=== PATIENT | female | born 1985 | race Caucasian/White ===

== ENCOUNTER 2019-07-21 10:24 | Emergency (ER) | payer OTHER ==
[~2019-07-21] VITALS: Ht 167.6 cm; Wt 71.2 kg
[2019-07-21] MEDS ORDERED: ASPIRIN 81 MG CHEW TAB PO ONE (11:00)
[2019-07-21] MEDS ORDERED: KETOROLAC TROMETHAMINE 30 MG/ML VIAL IV STA (11:06)
[2019-07-21] MEDS ORDERED: DEXAMETHASONE SOD PHOS 10 MG/1 ML VIAL IV ONE (11:15)
[2019-07-21 11:55] LABS: BASOPHILS % 0.4 % (0.0-1.0); EOSINOPHILS % 0.6 % (0.0-6.0); HEMATOCRIT 39.4 % (34.2-44.1); HEMOGLOBIN 13.4 g/dL (12.0-16.0); LYMPHOCYTES # (AUTO) 1.4 (1.0-3.2); LYMPHOCYTES % 27.4 % (18.0-39.1); MEAN CORPUSCULAR HEMOGLOBIN 31.9 pg (28-32); MEAN CORPUSCULAR VOLUME 93.8 fL (81-99); MONOCYTES # (AUTO) 0.3 (0.2-0.8); NEUTROPHILS # (AUTO) 3.4 (2.1-6.9); NEUTROPHILS % 65.2 % (38.7-80.0); PLATELET COUNT 223 x10e3/uL (140-360); RED CELL DISTRIBUTION WIDTH 12.6 % (11.7-14.4)
[2019-07-21 12:14] LABS: BACTERIA,URINE RARE /HPF; EPITHELIAL CELLS,URINE MANY /LPF; WBC,URINE (MAN) 0-5 /HPF (0-5)
[2019-07-21 12:16] LABS: BILIRUBIN,URINE NEGATIVE (NEGATIVE); CLARITY,URINE CLEAR (CLEAR); COLOR,URINE YELLOW (YELLOW); KETONES,URINE NEGATIVE (NEGATIVE); LEUKOCYTE ESTERASE ,URINE NEGATIVE (NEGATIVE); NITRITE,URINE NEGATIVE (NEGATIVE); PROTEIN,URINE DIPSTICK NEGATIVE (NEGATIVE); URINE UROBILINOGEN 0.2 mg/dL (0.2 - 1)
[2019-07-21 12:22] LABS: ALANINE AMINOTRANSFERASE 33 IU/L (0-55); ALBUMIN 3.7 g/dL (3.5-5.0); ALBUMIN/GLOBULIN RATIO 1.4 (0.8-2.0); ALKALINE PHOSPHATASE 50 IU/L (40-150); ANION GAP 11.7 mmol/L (8-16); BLOOD UREA NITROGEN 8 mg/dL (7-26); BUN/CREATININE RATIO 11 (6-25); CALCIUM 9.4 mg/dL (8.4-10.2); CARBON DIOXIDE 25 mmol/L (22-29); CHLORIDE 105 mmol/L (98-107); CREATINE KINASE 1874 IU/L (29-168); CREATININE, SERUM 0.74 mg/dL (0.57-1.11); EST GLOMERULAR FILTRATION RATE > 60 ML/MIN (60-); GLUCOSE 102 mg/dL (74-118); POTASSIUM 3.7 mmol/L (3.5-5.1); SODIUM 138 mmol/L (136-145)
--- NOTE | 2019-07-21 12:31 | Diagnostic Imaging Report ---
EXAMINATION: CHEST SINGLE (PORTABLE) INDICATION: Chest pain COMPARISON: None FINDINGS: LINES/TUBES:EKG leads overlie the chest. LUNGS:The lungs are well-inflated. No focal consolidation or pulmonary edema. PLEURA:No pleural effusion or pneumothorax. MEDIASTINUM:The cardiomediastinal silhouette appears normal in size and shape. BONES/SOFT TISSUES:No acute osseous injury. ABDOMEN:No free air under the diaphragm. IMPRESSION: No focal pneumonia or pulmonary edema. Signed by: Prachi López MD on 07/21/2019 12:28 PM
[2019-07-21 12:56] LABS: INR 0.93
[2019-07-21 12:57] LABS: PARTIAL THROMBOPLASTIN TIME 24.1 seconds (23.8-35.5)
[2019-07-21] MEDS ORDERED: SODIUM BICARBONATE 8.4% 50 ML VIAL IV STA (13:05)
[2019-07-21] MEDS ORDERED: SODIUM CHLORIDE 0.9% 1000ML 2,000 ML IV ONE (13:15)
[2019-07-21] MEDS ORDERED: SODIUM BICARBONATE 8.4% INJ 50 ML SYR IV ONE (13:30)
--- OUTSIDE RECORDS SUMMARY | 2019-07-25 12:50 | XMS REPORT ---
Author Author [facility] Address Unknown Phone Unavailable Care Team Providers Care [employer] Name Role Phone Brenda MONTANEZ Unavailable Unavailable Problems This patient has no known problems. Allergies, Adverse Reactions, Alerts This patient has no known allergies or adverse reactions. Medications This patient has no known medications. Results Test Description Test Time Test Comments Text Results Atomic Results Result Comments CHEST 2 VIEWS 2019-07-23 15:46:00 [place] [address] Patient Name: MEGA PARISI MR #: [id number] : 1985 Age/Sex: 33/F Req #: [id number] Adm Physician: Ordered by: AMELIE MONTANEZ MD Report #: [id number] Location: ER Room/Bed: Procedure: [id number] DX/CHEST 2 VIEWS Exam Date: 07/23/19 Exam Time: 1516 REPORT STATUS: Signed Chest, 2 views, 07/23/2019. History: Chest pain. Comparison: None available. Findings: The cardiomediastinal silhouette and pulmonary vasculature are within normal limits. The lungs are clear without evidence of consolidation or pleural effusion. Bilateral nipple piercings are present. There are no acute osseous or soft tissue abnormalities. Impression: No acute cardiopulmonary abnormality. Signed by: Jb Lockwood on 07/23/2019 3:47 PM Dictated By: JB LOCKWOOD MD 1547 Transcribed By: RAMA on 07/23/19 1547 COPY TO: AMELIE MONTANEZ MD CHEST SINGLE (PORTABLE) 2019-07-21 12:28:00 [facility] [address] [place] [id number] Patient Name: MEGA PARISI MR #: [id number] : 1985 Age/Sex: 33/F Req #: [id number] Adm Physician: Ordered by: GUANAKO LUNA NP Report #: [id number] Location: ER Room/Bed: Procedure: [id number] DX/CHEST SINGLE (PORTABLE) Exam Date: 07/21/19 Exam Time: 1200 REPORT STATUS: Signed EXAMINATION: CHEST SINGLE (PORTABLE) IN DICATION: Chest pain COMPARISON: None FINDINGS: LINES/TUBES:EKG leads overlie the chest. LUNGS:The lungs are well-inflated. No focal consolidation or pulmonary edema. PLEURA:No pleural effusion or pneumothorax. MEDIASTINUM:The cardiomediastinal silhouette appears normal in size and shape. BONES/SOFT TISSUES:No acute osseous injury. ABDOMEN:No free air under the diaphragm. IMPRESSION: No focal pneumonia or pulmonary edema. Signed by: Katharina Tolbert MD on 07/21/2019 12:28 PM Dictated By: KATHARINA TOLBERT MD 1228 Transcribed By: RAMA on 07/21/19 1228 COPY TO: GUANAKO LUNA NP CT ABDOMEN/PELVIS WITH 2018-09-14 07:31:[address] [address]LNAYPYZIEL IMAGING REPORTPatient Name: Laura PARISI of Service: [id number]: 32 Sex: F Order #: [id number] [facility] 1985 [facility] Number: [id number] Record Number: [id number] Hospital Number: [id number] Physician: ASHOK IVEYOrdering Physician: ERIK IVEY abdomen and pelvis.History: Abdomen pain.Technique: IV and oral contrast enhanced CT axial images of the abdomen andpelvis with sagittal and coronal reformatted images were reviewed.Contrast administered for this study per protocol; oral Gastrografin- mL water with 15 mL Gastrografin and IV Isovue 300-[address] exam was performed using one or more of the following dosereduction techniques: Automated exposure control, adjustment of the MAand/or KV according to patient size or use of iterative reconstructiontechnique.Comparison: None.Findings:Images of the lower lungs and mediastinum demonstrate no specific defects.The solid large organs of the upper abdomen appear focally normal.The gallbladder appears normal.There is no significant retroperitoneal adenopathy or fluid collectionsdepicted.Small bowel loops appear focally normal.There are no specific mucosal abnormality seen involving the colon.The appendix is visualized and appears retrocecal and normal.The urinary bladder appears normal. There is no pelvic free fluid seen.There is an IUD within the uterus. There is a small cyst associated withthe right ovary.Impression:No specific acute appearing abdominal abnormalities.Electronically Signed By: Collin Adams M.D., 09/14/2018 7:29 AMLegally authenticated by RADHA Williamson 2018-09-14 07:29:22 LIVER PANEL 2018-09-14 01:32:00 TOTPROT (test code=TOTPROT) 6.2 G/DL 6.3-8.2 ALBUMIN (test code=ALBSERUM) 3.8 G/DL 3.5-5.0 BILITOT (test code=BILITOT) 0.2 MG/DL 0.2-1.3 BILIDIR (test code=BILIDIR) 0.2 MG/DL 0.0-0.4 AST (test code=AST) 22 U/L 15-46 PHOSALK (test code=PHOSALK) 50 U/L 38-126 ALT (test code=ALT) 41 U/L 13-69 [id number] 01:32:00* Test Item Value Reference Range Comments LIPASE (test code=LIPA) 233 U/L 23-300 BMP, BASIC METABOLIC [id number] 01:31:00* Test Item Value Reference Range Comments SODIUM (test code=NA) 140 MMOL/L 137-145 K+ (test code=KSERUM) 4.0 MMOL/L 3.5-5.1 PLEASE NOTE NEW REFERENCE RANGE(S) IN EFFECT EFFECTIVE 03/10/2010 - NEW ANALYZER ([employer](BHI) 5600) CHLORIDE (test code=CL) 107 MMOL/L 98-107 CO2 (test code=CO2) 28 MMOL/L 22-30 BUN (test code=BUN) 17 MG/DL 7-17 CREA (test code=CREA) 0.7 MG/DL 0.7-1.2 GLUCOSE (test code=GLUCOSE) 98 MG/DL 70-99 Fasting glucose normal <100 MG/DL- [employer] recommendation CALCIUM (test code=CABLOOD) 9.1 MG/DL 8.4-10.2 GFR (test code=GFR) 104 mL/min/1.73m2 A GFR of >90 mL/min/1.73m2 is considered normal. B-HCG QUAL (KIT)2018-09-14 01:21:00* Test Item Value Reference Range Comments HCGQUAL (test code=HCGQUAL) NEGATIVE NEGATIVE URINE: NEGATIVE=< 20 mIU/ML; POSITIVE=>/=20 mIU/ML SERUM: NEGATIVE=< 10 mIU/ML; POSITIVE=>/=10 mIU/ML SOURCE (test code=SOURCE) SERUM HCG INTERNAL POSITIVE CNTRL (test code=HCGIPC) PASS PASS HCG LOT # (test code=UHCGLOT) [id number] HCG EXPIRATION DATE (test code=UHCGEXP) 02-03-20 [id number] 00:38:00* Test Item Value Reference Range Comments GLUCOSE (test code=URGLU) NEGATIVE MG/DL NEG-100 BILIRUBN (test code=URBILI) NEGATIVE NEGATIVE KETONE (test code=URKET) TRACE MG/DL NEGATIVE BLOOD (test code=URBLD) NEGATIVE UR PH (test code=URPH) 5.5 5.0-7.5 PROTEIN (test code=URPRO) NEGATIVE MG/DL NEGATIVE NITRITES (test code=URNIT) NEGATIVE NEGATIVE UROBILINGEN (test code=URURO) 0.2 EU/DL 0.2-1.0 LEUKOCYT (test code=URLEU) NEGATIVE NEGATIVE UA COLOR (test code=UA COLOR) YELLOW YELLOW CLARITY (test code=CLARITY) CLEAR CLEAR SP GRAV (test code=URSPGRAV) 1.030 1.000-1.025 UAMICRO (test code=UAMICRO) NO WHOLE BLOOD [id number] 00:35:00* Test Item Value Reference Range Comments WHOLE BLOOD GLUCOSE (test code=POC GLU) 82 MG/DL 70-99 [id number] 00:35:00* Test Item Value Reference Range Comments WBC (test code=WBC) 8.8 K/UL 3.5-10.9 RBC (test code=RBC) 3.71 M/UL 4.0-5.0 HGB (test code=HGB) 12.0 G/DL 11.5-15.5 HCT (test code=HCT) 35.9 % 34-46 MCV (test code=MCV) 96.8 FL 80-98 MCH (test code=MCH) 32.3 PG 28-32 MCHC (test code=MCHC) 33.4 G/DL 32.5-36.5 RDW (test code=RDW) 12.3 % 11.5-14.5 PLT (test code=PLT) 245 K/UL 150-450 MPV (test code=MPV) 10.4 FL 7.4-10.4 MANDIFF (test code=MANDIFF) NO SCAN (test code=SCAN) NO NEUT% (test code=NEUT%) 67.3 % 40-75 LYMPH% (test code=LYMPH%) 25.2 % 24-44 MONO% (test code=MONO%) 5.7 % 0-13 EOS% (test code=EOS%) 1.2 % 0-4 BASO % (test code=BASO%) 0.3 % 0-2 IG (test code=IG) 0 % 0-1 IG% (test code=IG%) 0.3 % 0-1 IG%=Metamyelocytes, Myelocytes, and Promyelocytes. (Immature neutrophils not including "bands".) > 3% IG indicates risk of sepsis NRBC% (test code=NRBC%) 0 /100 WBC ABS NEUT (test code=NEUT) 5.9 K/UL 1.2-7.2
== END 2019-07-21 15:31 | disposition home or self-care (01) ==
LOC: ER 10:24
DX: R07.89 Other chest pain (principal); R74.8 Abnormal levels of other serum enzymes; J44.9 Chronic obstructive pulmonary disease, unspecified; J45.909 Unspecified asthma, uncomplicated; Z85.850 Personal history of malignant neoplasm of thyroid
CPT/HCPCS: 36415; 71045; 80053; 81001; 82550; 82553; 83874; 84484; 84702; 85025; 85379; 85610; 85730; 93005; 99283; J1100; J1885; J7030

== ENCOUNTER 2019-07-23 14:10 | Emergency (ER) | payer OTHER ==
[~2019-07-23] VITALS: Ht 167.6 cm; Wt 71.2 kg
[2019-07-23 14:58] LABS: BASOPHILS % 0.6 % (0.0-1.0); EOSINOPHILS % 0.6 % (0.0-6.0); HEMATOCRIT 38.8 % (34.2-44.1); HEMOGLOBIN 12.9 g/dL (12.0-16.0); LYMPHOCYTES # (AUTO) 2.1 (1.0-3.2); LYMPHOCYTES % 29.6 % (18.0-39.1); MEAN CORPUSCULAR HEMOGLOBIN 31.9 pg (28-32); MEAN CORPUSCULAR HGB CONC 33.2 g/dL (31-35); MEAN CORPUSCULAR VOLUME 95.8 fL (81-99); MONOCYTES # (AUTO) 0.4 (0.2-0.8); MONOCYTES % 5.9 % (4.4-11.3); NEUTROPHILS # (AUTO) 4.5 (2.1-6.9); PLATELET COUNT 231 x10e3/uL (140-360); RED BLOOD COUNT 4.05 x10e6/uL (3.6-5.1); RED CELL DISTRIBUTION WIDTH 12.7 % (11.7-14.4)
[2019-07-23 15:09] LABS: INR 0.89; PROTHROMBIN TIME 12.5 seconds (11.9-14.5)
[2019-07-23 15:10] LABS: PARTIAL THROMBOPLASTIN TIME 23.3 seconds (23.8-35.5)
[2019-07-23 15:19] LABS: ALANINE AMINOTRANSFERASE 37 IU/L (0-55); ALBUMIN 3.7 g/dL (3.5-5.0); ALBUMIN/GLOBULIN RATIO 1.5 (0.8-2.0); ALKALINE PHOSPHATASE 44 IU/L (40-150); ANION GAP 11.5 mmol/L (8-16); BLOOD UREA NITROGEN 9 mg/dL (7-26); BUN/CREATININE RATIO 12 (6-25); CARBON DIOXIDE 25 mmol/L (22-29); CHLORIDE 105 mmol/L (98-107); CREATINE KINASE 601 IU/L (29-168); CREATININE, SERUM 0.76 mg/dL (0.57-1.11); EST GLOMERULAR FILTRATION RATE > 60 ML/MIN (60-); GLUCOSE 93 mg/dL (74-118); POTASSIUM 3.5 mmol/L (3.5-5.1); SODIUM 138 mmol/L (136-145)
[2019-07-23 15:40] LABS: THYROID STIMULATING HORMONE 3.294 uIU/mL (0.350-4.940)
[2019-07-23] MEDS ORDERED: SODIUM CHLORIDE 0.9% 1000ML 1,000 ML IV STA (15:48)
--- NOTE | 2019-07-23 15:50 | Diagnostic Imaging Report ---
Chest, 2 views, 07/23/2019. History: Chest pain. Comparison: None available. Findings: The cardiomediastinal silhouette and pulmonary vasculature are within normal limits. The lungs are clear without evidence of consolidation or pleural effusion. Bilateral nipple piercings are present. There are no acute osseous or soft tissue abnormalities. Impression: No acute cardiopulmonary abnormality. Signed by: Jb Lockwood on 07/23/2019 3:47 PM
[2019-07-23] MEDS ORDERED: SODIUM CHLORIDE 0.9% 1000ML 1,000 ML ONE (19:19)
[2019-07-23 21:06] VITALS: BP 111/82
== END 2019-07-23 21:07 | disposition home or self-care (01) ==
LOC: ER 14:10
DX: R07.89 Other chest pain (principal); J45.909 Unspecified asthma, uncomplicated; Z85.850 Personal history of malignant neoplasm of thyroid
CPT/HCPCS: 36415; 71046; 80053; 82550; 82553; 84436; 84443; 84479; 84484; 84702; 85025; 85610; 85730; 93005; 99283; J7030